=== PATIENT | male | born 1950 | race Caucasian/White ===

== ENCOUNTER 2018-07-04 20:25 | Emergency (ER) | payer MEDICARE, MEDICAID, SELFPAY ==
[2018-07-04 20:25] VITALS: BP 168/120; PULSE 96; RESP 18; TEMP 36.7; O2SAT 98
--- NOTE | 2018-07-04 20:32 | DI.RAD.S_ITS ---
PROCEDURE: XR CHEST 1V INDICATIONS: SOB TECHNIQUE: One view of the chest was acquired. COMPARISON: None. FINDINGS: Surgical changes and devices: None. Lungs and pleura: No pleural effusions or pneumothorax. Lungs are clear. Mediastinum: Mediastinal contours appear normal. Heart size is normal. Bones and chest wall: No suspicious bony lesions. Overlying soft tissues appear unremarkable. IMPRESSION: No acute cardiopulmonary pathology. Dictated by: Titus Dc M.D. on 07/04/2018 at 21:00 Approved by: Titus Dc M.D. on 07/04/2018 at 21:00
[2018-07-04] MEDS: ASPIRIN 81 MG TAB 324 MG PO (20:36)
[2018-07-04 20:39] VITALS: BP 155/89; PULSE 98; RESP 18; O2SAT 98
[2018-07-04 20:48] LABS: Add Manual Diff / Slide Review NO; Basophils Percent Auto 0.8 % (0-2); Eosinophils Percent Auto 4.3 % (2-4); Hematocrit 47.3 % (41-53); Hemoglobin 16.4 g/dL (13.5-17.5); Lymphocytes Percent Auto 36.2 % (25-40); Mean Corpuscular HGB Conc 34.7 % (30-36); Mean Corpuscular Hemoglobin 33.1 PG (26-34); Mean Corpuscular Volume 95.2 fL (80-100); Monocytes Percent Auto 10.4 % (3-14); Neutrophils Absolute Auto 3100 /uL (3000-5900); Neutrophils Percent Auto 48.3 % (50-75); Platelet Count 189 X10^3/uL (150-400); Red Blood Cell Count 4.96 X10^6/uL (4.5-5.9); White Blood Cell Count 6.5 X10^3/uL (4.5-11.0)
[2018-07-04 20:59] LABS: Alanine Aminotransferase 45 IU/L (21-72); Albumin 4.6 g/dL (3.5-5.0); Albumin Globulin Ratio 1.6 (1.0-2.8); Alkaline Phosphatase 65 U/L (38-126); Aspartate Aminotransferase 36 IU/L (17-59); BUN Creatinine Ratio 15.4 (6-22); Bilirubin Total 0.8 mg/dL (0.2-1.3); Blood Urea Nitrogen 20 mg/dL (9-20); Calcium 9.6 mg/dL (8.4-10.2); Carbon Dioxide 27 mmol/L (22-32); Chloride 107 mmol/L (98-107); Creatine Kinase 204 U/L (55-170); Estimated Glomerular Filt Rate 55.1 mL/min (>60); Globulin 2.8 g/dL (1.7-4.1); Glucose 101 mg/dL (80-110); Lipase 324 U/L (23-300); Potassium 3.8 mmol/L (3.4-5.1); Sodium 146 mmol/L (137-145); Total Protein 7.4 g/dL (6.3-8.2)
[2018-07-04] MEDS: SODIUM CHLORIDE 0.9% 1,000 ML 150 ML IV (21:00)
--- NOTE | 2018-07-04 21:06 | ED.CHESTPAIN ---
HPI - Chest Pain General Chief Complaint: Chest Pain Stated Complaint: CHEST PAINS Time Seen by Provider: 07/04/18 20:32 Source: patient and family Mode of arrival: ambulatory Limitations: no limitations History of Present Illness HPI narrative: 68-year-old male with history of cardiac arrest secondary to septic shock presents to the emergency department today secondary to feeling a bit off over the course of the day including some fatigue and lack of energy as well as 3 episodes of brief sharp and stabbing anterior chest pain. He has not had any pain during his visit and denies any shortness of breath. He denies any recent illness such as runny nose, sore throat or cough. He has had no fever or chills. He admits to being under significant stress recently and has not been sleeping well admits that he probably has not been eating or drinking appropriately I the MD complaint: chest pain Onset (ago): hour(s) Duration: intermittent and now resolved Onset: during rest Pain location: substernal Severity: mild Quality: sharp Pain radiation: none Relieving factors: nothing Exacerbating factors: nothing Treatments prior to arrival chest pain: none Related Data Home Medications Medication Instructions Recorded Confirmed amlodipine 5 mg PO BEDTIME 07/04/18 07/04/18 Previous Rx's Medication Instructions Recorded chlorpromazine 25 mg tablet 25 mg PO BEDTIME #30 tab 07/02/18 metoprolol succinate ER 50 mg 150 mg PO DAILY #30 tab 07/02/18 tablet,extended release 24 hr pramipexole 0.125 mg tablet 0.125 mg PO BEDTIME #30 tab 07/02/18 Allergies Allergy/AdvReac Type Severity Reaction Status Date / Time No Known Drug Allergies Allergy Unverified 07/02/18 13:13 Review of Systems Review of Systems All systems reviewed & are unremarkable except as noted in HPI and below Constitutional Denies chills, Reports fatigue, Denies fever(s), Denies lethargy and Reports weakness Eyes Denies change in vision, Denies eye discharge, Denies irritation and Denies loss of vision ENT Ears, Nose, Mouth, and Throat: Denies change in voice, Denies neck pain and Denies sore throat Cardiovascular Reports chest pain, Denies irregular heart rhythm, Denies lightheadedness, Denies palpitations, Denies dyspnea, Denies dyspnea on exertion and Denies orthopnea Respiratory Denies cough, Denies dyspnea, Denies dyspnea on exertion and Denies wheezing Gastrointestinal Gastrointestinal: Denies abdominal pain, Denies change in bowel habits, Denies diarrhea, Denies nausea and Denies vomiting Genitourinary Denies hematuria, Denies flank pain, Denies urinary incontinence and Denies urinary urgency Musculoskeletal Denies neck pain Integumentary/Breasts Denies pruritus, Denies erythema, Denies rash and Denies wounds Neurologic Denies confusion, Denies loss of vision and Reports weakness Psychiatric Denies anxiety, Denies confusion, Denies depression, Denies homicidal ideation and Denies suicidal ideation Endocrine Reports fatigue and Denies palpitations Hematologic/Lymphatic Denies easy bruising Allergic/Immunologic Denies wheezing [facility] Medical History Atrial fibrillation (Chronic 2017) Bipolar disorder (Chronic 1989) Dementia (Chronic 2017) Depression (Chronic 1989) Hypertension (Chronic) Kidney disease (Chronic 11/2017) Kidney failure (Chronic 11/2017) Low testosterone (Chronic 1989) Pituitary adenoma (Chronic 1989) Thyroid nodule (Chronic 1989) Cardiac arrest (Resolved 11/2017) Measles (Resolved) Melanoma (Resolved ~2009) Mumps (Resolved) Pneumonia (Resolved 10/2012) Family History Father Cancer Hypertension Mother Diabetes mellitus Grandfather Cancer Grandmother Cancer Grandfather Heart disease Grandmother Heart disease Social History Smoking Status: Never smoker alcohol intake: never Exam Narrative Exam Narrative: Pleasant 68-year-old male appears a bit fatigued but in no obvious or significant distress Initial Vital Signs Initial Vital Signs: Vital Signs Temperature 98.1 F 07/04/18 20:25 Pulse Rate 96 H 07/04/18 20:25 Respiratory Rate 18 07/04/18 20:25 Blood Pressure 168/120 H 07/04/18 20:25 Pulse Oximetry 98 07/04/18 20:25 Const General: cooperative and well developed Nutritional Appearance: well nourished Orientation: alert, awake, oriented x3 and not confused HENMT Head: normocephalic and atraumatic Ears: external ears normal and TM's normal bilaterally Nose: external nose normal and No nasal discharge Face and sinus: sinuses nontender, face symmetric, no sinus tenderness and No dry mucous membranes Mouth: oral mucosae normal and moist mucous membranes Teeth and gingiva: dentition normal Throat: tonsils normal and uvula midline Eyes General: appearance normal, both eyes and all related structures Eyelids: eyelids normal Conjunctivae: conjunctivae normal Sclera: sclerae normal Pupils: PERRL EOM: EOM intact bilaterally Chest Chest: normal inspection of the chest Resp Effort & Inspection: normal respiratory effort, able to speak in complete sentences, no respiratory distress and no use of accessory muscles Auscultation: clear to auscultation bilaterally, no rales, no rhonchi and no wheezes Cardio Rate: regular rate Rhythm: abnormal rhythm GI Inspection: non-distended Palpation: soft, no hepatosplenomegaly, No guarding, No pulsatile mass and No tender Auscultation: normal bowel sounds Back/Spine/Pelvis Back: No CVA tenderness Cervical Spine: cervical ROM normal and No pain with cervical ROM Thoracic/Lumbar Spine: thoracic and lumbar spine normal to inspection Skin General: no rashes or lesions noted, No jaundice and No petechiae Neuro General: alert, oriented x3, gait normal and no focal motor deficits Speech: speech normal Psych Appearance: well kempt Mental Status: mental status grossly normal Attitude: cooperative Thought Content: normal and suicidality Judgment: judgment good Course Orders Ordered: ED Orders 07/04/18 20:32 XR chest 1V Stat EKG-12 Lead Stat 07/04/18 20:35 Complete Blood Count AUTO DIFF Stat Comprehensive Metabolic Panel Stat Lipase Stat Troponin & CK Cardiac Panel Stat Discontinued Medications Aspirin (Aspirin Chew) 324 mg PO NOW ONE Stop: 07/04/18 20:33 Last Admin: 07/04/18 20:36 Dose: 324 mg Sodium Chloride (Normal Saline 0.9%) 1,000 mls @ 150 mls/hr IV CONT JAVI Last Infusion: 07/04/18 23:14 Dose: 0 mls/hr Admin: 07/04/18 21:00 Dose: 150 mls/hr Vital Signs - 8 hr 07/04/18 20:25 07/04/18 20:39 07/04/18 21:59 Temperature 98.1 F Pulse Rate 96 H 98 H 84 Respiratory Rate 18 18 12 Blood Pressure 168/120 H Blood Pressure [Right Arm] 155/89 H 129/102 H Pulse Oximetry 98 98 95 07/04/18 22:37 Temperature Pulse Rate 93 H Respiratory Rate 16 Blood Pressure Blood Pressure [Right Arm] 132/97 H Pulse Oximetry 96 MDM - Chest Pain Differential Diagnosis Likely fracture of rib, pneumothorax, stable angina, unstable angina pectoris, atypical chest pain, st elevation myocardial infarction and costochondritis Medical Records Data Attestation: I reviewed the patient's medical records. Patient has a significant recent medical history including prolonged hospitalization for AFib w/RVR, anxiety, cardiac arrest, prolonged hospitalization and pneumonia with eventual discharge Lab Data Result diagrams: 07/04/18 20:35 07/04/18 20:35 Lab Results 07/04/18 07/04/18 Range/Units 20:35 20:35 WBC 6.5 (4.5-11.0) X10^3/uL RBC 4.96 (4.5-5.9) X10^6/uL Hgb 16.4 (13.5-17.5) g/dL Hct 47.3 (41-53) % MCV 95.2 (80-100) fL MCH 33.1 (26-34) PG MCHC 34.7 (30-36) % RDW 14.0 (11.6-14.8) % Plt Count 189 (150-400) X10^3/uL Neut % (Auto) 48.3 L (50-75) % Lymph % (Auto) 36.2 (25-40) % Barnes % (Auto) 10.4 (3-14) % Eos % (Auto) 4.3 H (2-4) % Baso % (Auto) 0.8 (0-2) % Neut # (Auto) 3100 (1062-9913) /uL Sodium 146 H (137-145) mmol/L Potassium 3.8 (3.4-5.1) mmol/L Chloride 107 (98-107) mmol/L Carbon Dioxide 27 (22-32) mmol/L BUN 20 (9-20) mg/dL Creatinine 1.30 H (0.66-1.25) mg/dL Estimated GFR 55.1 L (>60) mL/min BUN/Creatinine Ratio 15.4 (6-22) Glucose 101 (80-110) mg/dL Calcium 9.6 (8.4-10.2) mg/dL Total Bilirubin 0.8 (0.2-1.3) mg/dL AST 36 (17-59) IU/L ALT 45 (21-72) IU/L Alkaline Phosphatase 65 (38-126) U/L Total Creatine Kinase 204 H (55-170) U/L CK-MB (CK-2) 6.33 H (<2.37) ng/mL CK-MB (CK-2) Rel Index 3.1 (1.5-5.0) % Troponin I < 0.012 (0.01-0.034) ng/mL Total Protein 7.4 (6.3-8.2) g/dL Albumin 4.6 (3.5-5.0) g/dL Globulin 2.8 (1.7-4.1) g/dL Albumin/Globulin Ratio 1.6 (1.0-2.8) Lipase 324 H (23-300) U/L Discharge Plan Departure Patient Disposition: Home Clinical Impression: Atypical chest pain, Fatigue Discharge Date/Time: 07/04/18 23:15 Interventions: ED Discharge Assessment Last Done: 07/04/18 23:11 Instructions: DI for Atypical Chest Pain Activity Restrictions/Additional Instructions: *You have been diagnosed with [ atypical chest pain and fatigue ] *What to do: * continue to take medications as directed *Follow up with your primary care provider in 2-3 days, call tomorrow morning for an appointment. Let them know you were seen in the Emergency Department and that we ask that you be seen in follow up *Return to ER if you should have any new, worsening or concerning symptoms Prescriptions: No Action chlorpromazine 25 mg tablet 25 mg PO BEDTIME Qty: 30 RF: 0 metoprolol succinate 50 mg tablet extended release 24 hr 150 mg PO DAILY Qty: 30 RF: 0 pramipexole 0.125 mg tablet 0.125 mg PO BEDTIME Qty: 30 RF: 0 amlodipine 5 mg tablet 5 mg PO BEDTIME RF: 0 Referrals: Rik Licona MD [Primary Care Provider] -
[2018-07-04 21:14] LABS: CKMB % Relative Index 3.1 % (1.5-5.0); Creatine Kinase MB 6.33 ng/mL (<2.37)
[2018-07-04 21:16] LABS: Troponin I < 0.012 ng/mL (0.01-0.034)
[2018-07-04 21:59] VITALS: BP 129/102; PULSE 84; RESP 12; O2SAT 95
[2018-07-04 22:37] VITALS: BP 132/97; PULSE 93; RESP 16; O2SAT 96
== END 2018-07-04 23:15 | disposition home or self-care (01) ==
PROVIDERS: Emergency Provider Emergency Medicine; PCP Family Medicine
DX: R07.89 Other chest pain (principal); R53.81 Other malaise
CPT/HCPCS: 36591; 71045; 80053; 81003; 82550; 82553; 83690; 84484; 85025; 93005; 93010; 96360; 96361; 99283; 99285

== ENCOUNTER → 2018-12-09 17:23 | Outpatient (CLI) | payer MEDICARE, MEDICAID, SELFPAY ==
--- NOTE | 2018-12-09 17:27 | DI.RAD.S_ITS ---
PROCEDURE: XR CHEST 2V INDICATIONS: cough TECHNIQUE: 2 views of the chest were acquired. COMPARISON: None. FINDINGS: Surgical changes and devices: None. Lungs and pleura: Lungs are clear. No pleural effusions or pneumothorax. Mediastinum: Mediastinal contours are normal. Heart size is normal. Bones and chest wall: No suspicious bony abnormalities. Soft tissues appear unremarkable. IMPRESSION: No acute cardiopulmonary findings. Dictated by: Alyssa Mccloud M.D. on 12/09/2018 at 17:39 Approved by: Alyssa Mccloud M.D. on 12/09/2018 at 17:40
== END ==
PROVIDERS: PCP Family Medicine; Visit Provider Physician Assistant
DX: R05 Cough (principal)
CPT/HCPCS: 71046

== ENCOUNTER 2018-12-09 17:45 | Inpatient (IN) | payer MEDICARE, SELFPAY ==
[2018-12-09] VITALS (8 sets, daily range): BP systolic 112–148; BP diastolic 71–105; PULSE 66–144; RESP 16–31; TEMP 36.6–37.2; O2SAT 96–99; BMI 34.2
--- NOTE | 2018-12-09 | DI.ECHO.S_ITS ---
[facility] +---------+ : : [address] [place] : : : : [id number] : : : : Phone: [phone]+ Echocardiogram Report + + :Name: SUSHIL MELÉNDEZ Study Date: 12/10/2018 Height: 73 in : :[facility] Weight: 260 lb : : Gender: Male BSA: 2.4 m2 : :: 1950 Age: 68 yrs BP: 145/76 mmHg: :Reason For Study: Atrial fibrillation : : Performed By: Geetha Olvera : :Referring: SILKE ARTEAGA : + + Interpretation Summary Left ventricular systolic function is low normal with the ejection fraction grossly estimated to be 50-60% with considerable [id number] variability due to atrial fibrillation. There is a suggestion of hypokinesis of the proximal and mid posterior wall although endocardium is not well seen and thus this finding lacks specificity. Otherwise, there are no focal wall motion abnormalities seen. Left ventricular size is at the upper limits of normal and there is borderline concentric left ventricular hypertrophy. The right ventricle is mild to moderately dilated and right ventricular systolic function is mild to moderately reduced. The right ventricular systolic pressure is estimated to be at least 30 mmHg based on an estimated right atrial pressure of 3 mm Hg. The left atrium is moderately dilated. There is mild mitral regurgitation and mild to moderate tricuspid regurgitation but no other significant valvular heart disease. The ascending aorta is at the upper limits of normal in size and the aortic arch is mildly enlarged. The patient was in atrial fibrillation with heart rates between 66-83 bpm during the exam. Procedure: A two-dimensional transthoracic echocardiogram with color flow and Doppler was performed. The study quality was technically adequate. There is no prior echocardiogram noted for this patient. The patient was in atrial fibrillation with heart rates between 66-83 bpm during the exam. Left Ventricle: Left ventricular size is at the upper limits of normal. There is borderline concentric left ventricular hypertrophy. Left ventricular systolic function is low normal. Left ventricular ejection fraction is estimated to be 50-60% with considerable [id number] variability due to atrial fibrillation. There is a suggestion of hypokinesis of the proximal and mid posterior wall although endocardium is not well seen and thus this finding lacks specificity. Otherwise, there are no focal wall motion abnormalities seen. Diastolic function could not be accurately assessed due to atrial fibrillation. Right Ventricle: The right ventricle is mild to moderately dilated. Right ventricular systolic function is mild to moderately reduced. Atria: The left atrium is moderately dilated. Right atrial size is normal. The interatrial septum is intact with no evidence for an atrial septal defect. Mitral Valve: The mitral valve is grossly normal. There is mild mitral regurgitation. Aortic Valve: The aortic valve is trileaflet. The aortic valve opens well. There is no aortic valve stenosis. No aortic regurgitation is present. Tricuspid Valve: The tricuspid valve leaflets are thin and pliable. There is mild to moderate tricuspid regurgitation. The right ventricular systolic pressure is estimated to be at least 30 mmHg based on an estimated right atrial pressure of 3 mm Hg. Pulmonic Valve: The pulmonic valve is not well seen, but is grossly normal. There is trace pulmonic regurgitation. There is no other significant valvular heart disease. Great Vessels: The aortic root is normal size. The ascending aorta is at the upper limits of normal in size. The aortic arch is mildly enlarged. The IVC is of normal diameter and collapses greater than 50% with a sniff. This suggests a low right atrial pressure of 3 mm Hg. Pericardium/ Pleura There is no pericardial effusion. There is no pleural effusion. MMode/2D Measurements & Calculations LVIDd: 5.5 cm Ao root diam: 3.8 cm LVIDs: 4.0 cm Aortic Jxn: 3.1 cm FS: 27.9 % asc Aorta Diam: 3.4 cm EPSS: 0.75 cm Ao Arch Diam (Prox Trans): 3.2 cm IVSd: 1.1 cm LVPWd: 0.73 cm LV pena. diameter/BSA (cm/m^2): 2.3 LV sys. diameter/BSA (cm/m^2): 1.7 LA dimension: 4.7 cm RA long axis: 5.4 cm LA A2 area: 30.6 cm2 RA area: 15.6 cm2 LA A4 area: 28.7 cm2 RA vol: 38.2 ml LA length (vol): 6.8 cm RA : 15.9 ml/m2 LA vol: 109.3 ml IVC diam: 1.6 cm LA vol index: 45.4 ml/m2 RVD1 (basal): 4.6 cm RVD2 (mid): 3.9 cm Doppler Measurements & Calculations Ao V2 max: 109.7 cm/sec MV E max tavo: 84.9 cm/sec Ao V2 mean: 77.5 cm/sec MV A max tavo: 34.8 cm/sec Ao max P.8 mmHg MV E/A: 2.4 Ao mean P.7 mmHg Med Peak E' Tavo: 7.5 cm/sec Ao V2 VTI: 24.5 cm E/E' med: 11.4 Lat Peak E' Tavo: 10.1 cm/sec E/E' lat: 8.4 E/e' average: 9.9 MV dec time: 0.16 sec MV P1/2t: 49.1 msec TR max tavo: 258.0 cm/sec MV P1/2t max tavo: 85.2 cm/sec TR max P.6 mmHg MVA(P1/2t): 4.5 cm2 PA V2 max: 55.7 cm/sec PA V2 mean: 33.7 cm/sec PA mean P.56 mmHg PA Accel Time: 0.09 sec Reading Physician:PM
[2018-12-09 18:49] LABS: Add Manual Diff / Slide Review NO; Basophils Absolute Auto 0 /uL (0-100); Basophils Percent Auto 0.5 % (0-2); Eosinophils Absolute Auto 200 /uL (0-450); Eosinophils Percent Auto 2.5 % (2-4); Hematocrit 47.8 % (41-53); Hemoglobin 16.4 g/dL (13.5-17.5); Lymphocytes Absolute Auto 1800 /uL (1100-4500); Lymphocytes Percent Auto 17.9 % (25-40); Mean Corpuscular HGB Conc 34.3 % (30-36); Mean Corpuscular Hemoglobin 32.3 PG (26-34); Mean Corpuscular Volume 94.2 fL (80-100); Monocytes Absolute Auto 900 /uL (0-900); Neutrophils Absolute Auto 6900 /uL (1500-7000); Neutrophils Percent Auto 70.1 % (50-75); Platelet Count 173 X10^3/uL (150-400); Red Blood Cell Count 5.07 X10^6/uL (4.5-5.9); Red Cell Distribution Width 14.8 % (11.6-14.8); White Blood Cell Count 9.8 X10^3/uL (4.5-11.0)
[2018-12-09] MEDS: dilTIAZem 5 MG/ML SDV 10 MG IV (18:54)
[2018-12-09] MEDS: SODIUM CHLORIDE 0.9% 1,000 ML 150 ML IV (18:55)
[2018-12-09 19:01] LABS: Influenza A and B by PCR Rapid Negative (Negative)
[2018-12-09 19:05] LABS: BUN Creatinine Ratio 15.7 (6-22); Blood Urea Nitrogen 22 mg/dL (9-20); Calcium 9.5 mg/dL (8.4-10.2); Carbon Dioxide 22 mmol/L (22-32); Chloride 107 mmol/L (98-107); Creatine Kinase 246 U/L (55-170); Estimated Glomerular Filt Rate 50.5 mL/min (>60); Glucose 88 mg/dL (80-110); HEMOLYSIS 29 (0-50); Potassium 3.7 mmol/L (3.4-5.1); Sodium 141 mmol/L (137-145)
[2018-12-09 19:18] LABS: Lactate (Lactic Acid) 1.2 mmol/L (0.7-2.1); Troponin I < 0.012 ng/mL (0.01-0.034)
[2018-12-09 19:19] LABS: CKMB % Relative Index 2.3 % (1.5-5.0)
[2018-12-09 19:21] LABS: Procalcitonin < 0.05 ng/mL (<0.5)
--- NOTE | 2018-12-09 19:21 | ED.ARRPALP ---
HPI - Arrhythmia/Palpitations General Chief Complaint: Arrhythmia/Palpitations Stated Complaint: COUGH, ABNORMAL EKG Time Seen by Provider: 12/09/18 18:13 Source: patient Mode of arrival: ambulatory Limitations: no limitations History of Present Illness HPI narrative: 68-year-old male former smoker with history of coronary artery disease, AFib and the memory issues presents at the request of the walk-in clinic. He presented to the walk-in clinic after having a few days of cough and shortness of breath which made him think he had pneumonia. The last time he had pneumonia he became quite ill and in the and had a cardiac arrest related to sepsis which resulted in an anoxic encephalopathy and contributed to his ongoing memory problems. He has a history of atrial fibrillation but does not know if he has been taking his anticoagulation and states he thinks he may have been out for some time. He denies any chest pain or even shortness of breath but is convinced he has pneumonia. He denies any fever or chills. He has had no runny nose, sore throat but has had occasional cough. Severity: moderate Arrhythmia history: atrial fibrillation and on anti-coagulants Associated symptoms: shortness of breath Related Data Previous Rx's Medication Instructions Recorded chlorpromazine 25 mg tablet 25 mg PO BEDTIME #90 tab 10/26/18 metoprolol succinate ER 50 mg 150 mg PO DAILY #90 tab 10/26/18 tablet,extended release 24 hr pramipexole 0.125 mg tablet 0.125 mg PO BEDTIME #90 tab 12/06/18 Allergies Allergy/AdvReac Type Severity Reaction Status Date / Time No Known Drug Allergies Allergy Verified 12/09/18 17:55 Review of Systems Constitutional Denies chills, Denies fever(s), Denies lethargy and Denies weakness Eyes Denies change in vision, Denies eye discharge, Denies irritation and Denies loss of vision ENT Ears, Nose, Mouth, and Throat: Denies change in voice, Denies neck pain and Denies sore throat Cardiovascular Denies chest pain, Denies irregular heart rhythm, Denies lightheadedness, Denies palpitations, Reports dyspnea, Reports dyspnea on exertion and Denies orthopnea Respiratory Reports cough, Reports dyspnea, Reports dyspnea on exertion and Denies wheezing Gastrointestinal Gastrointestinal: Denies abdominal pain, Denies change in bowel habits, Denies diarrhea, Denies nausea and Denies vomiting Genitourinary Denies hematuria, Denies flank pain, Denies urinary incontinence and Denies urinary urgency Musculoskeletal Denies neck pain Integumentary/Breasts Denies pruritus, Denies erythema, Denies rash and Denies wounds Neurologic Denies confusion, Denies loss of vision and Denies weakness Psychiatric Denies anxiety, Denies confusion, Denies depression, Denies homicidal ideation and Denies suicidal ideation Endocrine Denies palpitations Hematologic/Lymphatic Denies easy bruising Allergic/Immunologic Denies wheezing [facility] Medical History Essential hypertension (Chronic) Anoxic brain injury (Chronic) Memory loss (Chronic) Bipolar disorder (Chronic) Atrial fibrillation (Chronic 2017) Bipolar disorder (Chronic 1989) Dementia (Chronic 2017) Depression (Chronic 1989) Hypertension (Chronic) Kidney disease (Chronic 11/2017) Kidney failure (Chronic 11/2017) Low testosterone (Chronic 1989) Pituitary adenoma (Chronic 1989) Thyroid nodule (Chronic 1989) Cardiac arrest (Resolved 11/2017) Measles (Resolved) Melanoma (Resolved ) Mumps (Resolved) Pneumonia (Resolved 10/2012) Family History Father Cancer Hypertension Mother Diabetes mellitus Grandfather Cancer Grandmother Cancer Grandfather Heart disease Grandmother Heart disease Social History household members: spouse Smoking Status: Never smoker alcohol intake: never Family History Father Cancer Hypertension Mother Diabetes mellitus Grandfather Cancer Grandmother Cancer Grandfather Heart disease Grandmother Heart disease Social History household members: spouse Smoking Status: Never smoker alcohol intake: never Exam Narrative Exam Narrative: GENERAL: 68-year-old male is pleasantly confused and no obvious distress but does complain of feeling a bit anxious HEAD: Atraumatic. Normocephalic. No temporal or scalp tenderness. EYES: Pupils equal round and reactive. Extraocular motions intact. No scleral icterus. No injection or drainage. ENT: Nose without bleeding, purulent drainage or septal hematoma. Throat without erythema, tonsillar hypertrophy or exudate. Uvula midline. Airway patent. NECK: Trachea midline. No JVD or lymphadenopathy. Supple, nontender, no meningeal signs. CARDIOVASCULAR: tachycardic and irregular without murmurs, gallops, or rubs. RESPIRATORY: Clear to auscultation. Breath sounds equal bilaterally. No wheezes, rales, or rhonchi. GASTROINTESTINAL: Abdomen soft, non-tender, nondistended. No hepato-splenomegaly, or palpable masses. No guarding. EXTREMITIES: No clubbing, cyanosis, or edema. No joint tenderness, effusion, or edema noted. BACK: Nontender without deformity or crepitance. No flank tenderness. NEURO: AOx3. SKIN: No rash or erythema. Initial Vital Signs Initial Vital Signs: Vital Signs Temperature 98.7 F 12/09/18 17:45 Pulse Rate 92 H 12/09/18 17:45 Respiratory Rate 20 12/09/18 17:45 Blood Pressure 143/75 H 12/09/18 17:45 Pulse Oximetry 99 12/09/18 17:45 Course Orders Ordered: ED Orders 12/09/18 19:19 Blood Culture Stat 12/09/18 21:15 MRSA PCR Urgent 12/09/18 22:54 Partial Thromboplastin Time Stat Procalcitonin Stat Prothrombin Time INR Stat Troponin I Stat 12/10/18 EKG-12 Lead Routine 12/10/18 05:00 Troponin I Stat Acetaminophen (Tylenol) 650 mg PO Q6HR PRN PRN Reason: As Needed for Fever/Mild Pain Benzonatate (Tessalon Perles) 200 mg PO TID PRN PRN Reason: Cough Last Admin: 12/10/18 01:35 Dose: 200 mg Chlorpromazine HCl (Thorazine) 25 mg PO BEDTIME [facility] Last Admin: 12/09/18 22:49 Dose: Enoxaparin Sodium (Lovenox) 90 mg 0.75 mg/kg (90 mg) SUBCUT BID [facility] Last Admin: 12/09/18 23:48 Dose: 90 mg Sodium Chloride (Normal Saline 0.9%) 1,000 mls @ 150 mls/hr IV CONT [facility] Last Admin: 12/10/18 00:31 Dose: 150 mls/hr Infusion: 12/10/18 00:30 Dose: 0 mls/hr Infusion: 12/09/18 21:20 Dose: 150 mls/hr Admin: 12/09/18 18:55 Dose: 150 mls/hr Diltiazem HCl 125 mg/ Dextrose 125 mls @ 5 mls/hr IV TITRATE JAVI; Protocol Last Titration: 12/10/18 03:09 Dose: 5 mg/hr, 5 mls/hr Titration: 12/09/18 21:20 Dose: 15 mg/hr, 15 mls/hr Titration: 12/09/18 20:17 Dose: 15 mg/hr, 15 mls/hr Titration: 12/09/18 19:40 Dose: 10 mg/hr, 10 mls/hr Admin: 12/09/18 19:22 Dose: 5 mg/hr, 5 mls/hr Influenza Virus Vaccine (Flu Vaccine) 0.5 ml IM .ONCE ONE Stop: 12/10/18 09:01 Metoprolol Succinate (Toprol Xl) 150 mg PO DAILY JAVI Morphine Sulfate (Morphine) 2 mg IV Q4HR PRN PRN Reason: Pain, Moderate (4-6) Morphine Sulfate (Morphine) 4 mg IV Q4HR PRN PRN Reason: Pain, Severe (7-10) Pantoprazole Sodium (Protonix) 40 mg PO 0700 JAVI Pramipexole Dihydrochloride (Mirapex) 0.125 mg PO BEDTIME [facility]AVI Last Admin: 12/09/18 22:48 Dose: 0.125 mg Discontinued Medications Aspirin (Aspirin) 325 mg PO NOW ONE Stop: 12/09/18 21:33 Last Admin: 12/09/18 22:49 Dose: 325 mg Diltiazem HCl (Cardizem) 10 mg IV NOW ONE Stop: 12/09/18 18:38 Last Admin: 12/09/18 18:54 Dose: 10 mg Dextrose/Sodium Chloride (Dextrose 5%-0.9% Ns) 1,000 mls @ 125 mls/hr IV CONT JAVI Lorazepam (Ativan) 0.5 mg PO BEDTIME PRN PRN Reason: Sleep Lorazepam (Ativan) 0.5 mg PO BEDTIME ONE Stop: 12/10/18 01:12 Last Admin: 12/10/18 01:27 Dose: 0.5 mg Metoprolol Tartrate (Lopressor) 12.5 mg PO NOW ONE Stop: 12/09/18 20:41 Last Admin: 12/09/18 21:00 Dose: 12.5 mg Reevaluation(s) Reevaluation #1: At no point this patient have chest pain, profound shortness of breath or ischemic EKG changes. It is unclear when his symptoms started and very likely that his anticoagulation is not being taken as directed making him of large wrist to cardiovert. For that reason he is administered Cardizem as an IV push which results in a transient lower in his heart rate at which point a Cardizem drip was ordered. After discussion with hospitalist metoprolol had been ordered as well Vital Signs - 8 hr 12/09/18 21:00 12/09/18 21:21 12/09/18 22:00 Temperature 98.9 F 98.8 F Pulse Rate 103 H 115 H 66 Respiratory Rate 16 16 17 Blood Pressure 127/81 121/91 H 121/71 Pulse Oximetry 99 96 12/09/18 23:35 12/10/18 00:06 12/10/18 01:04 Temperature 97.8 F 97.8 F Pulse Rate 71 66 79 Respiratory Rate 31 H 17 13 Blood Pressure 112/85 142/89 H 132/80 Pulse Oximetry 99 97 97 12/10/18 02:14 12/10/18 03:00 12/10/18 04:04 Temperature 97.8 F Pulse Rate 75 77 68 Respiratory Rate 17 16 10 L Blood Pressure 135/79 99/61 117/91 H Pulse Oximetry 96 96 97 MDM - Arrhythmia/Palpitations Lab Data Result diagrams: 12/09/18 18:40 12/09/18 18:40 Lab Results 12/09/18 12/09/18 12/09/18 Range/Units 18:40 18:40 18:40 WBC 9.8 (4.5-11.0) X10^3/uL RBC 5.07 (4.5-5.9) X10^6/uL Hgb 16.4 (13.5-17.5) g/dL Hct 47.8 (41-53) % MCV 94.2 (80-100) fL MCH 32.3 (26-34) PG MCHC 34.3 (30-36) % RDW 14.8 (11.6-14.8) % Plt Count 173 (150-400) X10^3/uL Neut % (Auto) 70.1 (50-75) % Lymph % (Auto) 17.9 L (25-40) % [place] % (Auto) 9.0 (3-14) % Eos % (Auto) 2.5 (2-4) % Baso % (Auto) 0.5 (0-2) % Neut # (Auto) 6900 (8121-0313) /uL Lymph # (Auto) 1800 (5798-8620) /uL [place] # (Auto) 900 (0-900) /uL Eos # (Auto) 200 (0-450) /uL Baso # (Auto) 0 (0-100) /uL PT (10.1-12.7) SECONDS INR (0.9-1.3) APTT (26.4-36.2) SECONDS Sodium 141 (137-145) mmol/L Potassium 3.7 (3.4-5.1) mmol/L Chloride 107 (98-107) mmol/L Carbon Dioxide 22 (22-32) mmol/L BUN 22 H (9-20) mg/dL Creatinine 1.40 H (0.66-1.25) mg/dL Estimated GFR 50.5 L (>60) mL/min BUN/Creatinine Ratio 15.7 (6-22) Glucose 88 (80-110) mg/dL Lactate (0.7-2.1) mmol/L Calcium 9.5 (8.4-10.2) mg/dL Magnesium 2.0 (1.6-2.3) mg/dL Total Creatine Kinase 246 H (55-170) U/L CK-MB (CK-2) 5.70 H (<2.37) ng/mL CK-MB (CK-2) Rel Index 2.3 (1.5-5.0) % Troponin I < 0.012 (0.01-0.034) ng/mL Procalcitonin < 0.05 (<0.5) ng/mL TSH (0.47-4.68) uIU/mL Nasal Screen MRSA (PCR) (Negative) Influenza A & B (PCR) (Negative) 12/09/18 12/09/18 12/09/18 Range/Units 18:40 18:40 18:40 WBC (4.5-11.0) X10^3/uL RBC (4.5-5.9) X10^6/uL Hgb (13.5-17.5) g/dL Hct (41-53) % MCV (80-100) fL MCH (26-34) PG MCHC (30-36) % RDW (11.6-14.8) % Plt Count (150-400) X10^3/uL Neut % (Auto) (50-75) % Lymph % (Auto) (25-40) % [place] % (Auto) (3-14) % Eos % (Auto) (2-4) % Baso % (Auto) (0-2) % Neut # (Auto) (6758-6494) /uL Lymph # (Auto) (6736-0581) /uL [place] # (Auto) (0-900) /uL Eos # (Auto) (0-450) /uL Baso # (Auto) (0-100) /uL PT (10.1-12.7) SECONDS INR (0.9-1.3) APTT (26.4-36.2) SECONDS Sodium (137-145) mmol/L Potassium (3.4-5.1) mmol/L Chloride (98-107) mmol/L Carbon Dioxide (22-32) mmol/L BUN (9-20) mg/dL Creatinine (0.66-1.25) mg/dL Estimated GFR (>60) mL/min BUN/Creatinine Ratio (6-22) Glucose (80-110) mg/dL Lactate (0.7-2.1) mmol/L Calcium (8.4-10.2) mg/dL Magnesium (1.6-2.3) mg/dL Total Creatine Kinase (55-170) U/L CK-MB (CK-2) (<2.37) ng/mL CK-MB (CK-2) Rel Index (1.5-5.0) % Troponin I (0.01-0.034) ng/mL Procalcitonin Cancelled (<0.5) ng/mL TSH 3.06 (0.47-4.68) uIU/mL Nasal Screen MRSA (PCR) (Negative) Influenza A & B (PCR) Negative (Negative) 12/09/18 12/09/18 12/09/18 Range/Units 18:40 21:15 22:54 WBC (4.5-11.0) X10^3/uL RBC (4.5-5.9) X10^6/uL Hgb (13.5-17.5) g/dL Hct (41-53) % MCV (80-100) fL MCH (26-34) PG MCHC (30-36) % RDW (11.6-14.8) % Plt Count (150-400) X10^3/uL Neut % (Auto) (50-75) % Lymph % (Auto) (25-40) % [place] % (Auto) (3-14) % Eos % (Auto) (2-4) % Baso % (Auto) (0-2) % Neut # (Auto) (4728-0017) /uL Lymph # (Auto) (1263-8141) /uL [place] # (Auto) (0-900) /uL Eos # (Auto) (0-450) /uL Baso # (Auto) (0-100) /uL PT 16.9 H (10.1-12.7) SECONDS INR 1.5 H (0.9-1.3) APTT 37 H (26.4-36.2) SECONDS Sodium (137-145) mmol/L Potassium (3.4-5.1) mmol/L Chloride (98-107) mmol/L Carbon Dioxide (22-32) mmol/L BUN (9-20) mg/dL Creatinine (0.66-1.25) mg/dL Estimated GFR (>60) mL/min BUN/Creatinine Ratio (6-22) Glucose (80-110) mg/dL Lactate 1.2 (0.7-2.1) mmol/L Calcium (8.4-10.2) mg/dL Magnesium (1.6-2.3) mg/dL Total Creatine Kinase (55-170) U/L CK-MB (CK-2) (<2.37) ng/mL CK-MB (CK-2) Rel Index (1.5-5.0) % Troponin I (0.01-0.034) ng/mL Procalcitonin (<0.5) ng/mL TSH (0.47-4.68) uIU/mL Nasal Screen MRSA (PCR) Negative for mrsa (Negative) Influenza A & B (PCR) (Negative) 12/09/18 12/09/18 Range/Units 22:54 22:54 WBC (4.5-11.0) X10^3/uL RBC (4.5-5.9) X10^6/uL Hgb (13.5-17.5) g/dL Hct (41-53) % MCV (80-100) fL MCH (26-34) PG MCHC (30-36) % RDW (11.6-14.8) % Plt Count (150-400) X10^3/uL Neut % (Auto) (50-75) % Lymph % (Auto) (25-40) % [place] % (Auto) (3-14) % Eos % (Auto) (2-4) % Baso % (Auto) (0-2) % Neut # (Auto) (3285-3771) /uL Lymph # (Auto) (1660-4888) /uL [place] # (Auto) (0-900) /uL Eos # (Auto) (0-450) /uL Baso # (Auto) (0-100) /uL PT (10.1-12.7) SECONDS INR (0.9-1.3) APTT (26.4-36.2) SECONDS Sodium (137-145) mmol/L Potassium (3.4-5.1) mmol/L Chloride (98-107) mmol/L Carbon Dioxide (22-32) mmol/L BUN (9-20) mg/dL Creatinine (0.66-1.25) mg/dL Estimated GFR (>60) mL/min BUN/Creatinine Ratio (6-22) Glucose (80-110) mg/dL Lactate (0.7-2.1) mmol/L Calcium (8.4-10.2) mg/dL Magnesium (1.6-2.3) mg/dL Total Creatine Kinase (55-170) U/L CK-MB (CK-2) (<2.37) ng/mL CK-MB (CK-2) Rel Index (1.5-5.0) % Troponin I < 0.012 (0.01-0.034) ng/mL Procalcitonin < 0.05 (<0.5) ng/mL TSH (0.47-4.68) uIU/mL Nasal Screen MRSA (PCR) (Negative) Influenza A & B (PCR) (Negative) Discharge Plan Departure Patient Disposition: Admitted As Inpatient Clinical Impression: Atrial fibrillation with rapid ventricular response Discharge Date/Time: 12/09/18 21:28 Interventions: ED Discharge Assessment Last Done: 12/09/18 21:21 Admit Date/Time: 12/09/18 20:45 Admit Provider: Michael Ngo
[2018-12-09] MEDS: dilTIAZem 125 MG in DEXTROSE 5 % IN WATER 100 ML IV (19:22)
[2018-12-09 19:32] LABS: Thyroid Stimulating Hormone 3.06 uIU/mL (0.47-4.68)
[2018-12-09] MEDS: METOPROLOL 12.5 MG TABLET PO (21:00)
[2018-12-09] MEDS: PRAMIPEXOLE 0.125 MG TABLET PO (22:48)
[2018-12-09] MEDS: ASPIRIN 325 MG TABLET PO (22:49)
--- NOTE | 2018-12-09 22:51 | PC.NURSE ---
2100- Patient arrived from Emergency via stretcher. Diltiazem gtt infusing at 15mg/hr. Pt in afib/RVR. Patient is alert oriented and cooperative with care. Patient was assisted to the bed in room 106. Bed alarm engaged as patient has a history of short term memory loss. Lungs are Dim/Clear saturation is 97% on room air. Will monitor.
[2018-12-09 23:10] LABS: INR 1.5 (0.9-1.3); Prothrombin Time 16.9 SECONDS (10.1-12.7)
[2018-12-09 23:12] LABS: PTT Partial Thromboplastin Tim 37 SECONDS (26.4-36.2)
[2018-12-09 23:39] LABS: Troponin I < 0.012 ng/mL (0.01-0.034)
[2018-12-09 23:42] LABS: Procalcitonin < 0.05 ng/mL (<0.5)
[2018-12-09] MEDS: ENOXAPARIN 100 MG/ML SYRINGE 90 MG SUBCUT (23:48)
[2018-12-10] VITALS (14 sets, daily range): BP systolic 97–145; BP diastolic 43–91; PULSE 66–85; RESP 10–20; TEMP 36.1–37.1; O2SAT 96–98
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
[2018-12-10] MEDS: SODIUM CHLORIDE 0.9% 1,000 ML 150 ML IV ×2 (00:31→08:20)
[2018-12-10] MEDS: LORazepam 0.5 MG TABLET PO (01:27)
[2018-12-10] MEDS: BENZONATATE 100 MG CAPSULE 200 MG PO ×3 (01:35→16:11)
--- NOTE | 2018-12-10 04:14 | ED_ITS ---
HPI - Arrhythmia/Palpitations General Chief Complaint: Arrhythmia/Palpitations Stated Complaint: COUGH, ABNORMAL EKG Time Seen by Provider: 12/09/18 18:13 Source: patient Mode of arrival: ambulatory Limitations: no limitations History of Present Illness HPI narrative: 68-year-old male former smoker with history of coronary artery disease, AFib and the memory issues presents at the request of the walk-in clinic. He presented to the walk-in clinic after having a few days of cough and shortness of breath which made him think he had pneumonia. The last time he had pneumonia he became quite ill and in the and had a cardiac arrest related to sepsis which resulted in an anoxic encephalopathy and contributed to his ongoing memory problems. He has a history of atrial fibrillation but does not know if he has been taking his anticoagulation and states he thinks he may have been out for some time. He denies any chest pain or even shortness of breath but is convinced he has pneumonia. He denies any fever or chills. He has had no runny nose, sore throat but has had occasional cough. Severity: moderate Arrhythmia history: atrial fibrillation and on anti-coagulants Associated symptoms: shortness of breath Related Data Previous Rx's Medication Instructions Recorded chlorpromazine 25 mg tablet 25 mg PO BEDTIME #90 tab 10/26/18 metoprolol succinate ER 50 mg 150 mg PO DAILY #90 tab 10/26/18 tablet,extended release 24 hr pramipexole 0.125 mg tablet 0.125 mg PO BEDTIME #90 tab 12/06/18 Allergies Allergy/AdvReac Type Severity Reaction Status Date / Time No Known Drug Allergies Allergy Verified 12/09/18 17:55 Review of Systems Constitutional Denies chills, Denies fever(s), Denies lethargy and Denies weakness Eyes Denies change in vision, Denies eye discharge, Denies irritation and Denies loss of vision ENT Ears, Nose, Mouth, and Throat: Denies change in voice, Denies neck pain and Denies sore throat Cardiovascular Denies chest pain, Denies irregular heart rhythm, Denies lightheadedness, Denies palpitations, Reports dyspnea, Reports dyspnea on exertion and Denies orthopnea Respiratory Reports cough, Reports dyspnea, Reports dyspnea on exertion and Denies wheezing Gastrointestinal Gastrointestinal: Denies abdominal pain, Denies change in bowel habits, Denies diarrhea, Denies nausea and Denies vomiting Genitourinary Denies hematuria, Denies flank pain, Denies urinary incontinence and Denies urinary urgency Musculoskeletal Denies neck pain Integumentary/Breasts Denies pruritus, Denies erythema, Denies rash and Denies wounds Neurologic Denies confusion, Denies loss of vision and Denies weakness Psychiatric Denies anxiety, Denies confusion, Denies depression, Denies homicidal ideation and Denies suicidal ideation Endocrine Denies palpitations Hematologic/Lymphatic Denies easy bruising Allergic/Immunologic Denies wheezing [facility] Medical History Essential hypertension (Chronic) Anoxic brain injury (Chronic) Memory loss (Chronic) Bipolar disorder (Chronic) Atrial fibrillation (Chronic 2017) Bipolar disorder (Chronic 1989) Dementia (Chronic 2017) Depression (Chronic 1989) Hypertension (Chronic) Kidney disease (Chronic 11/2017) Kidney failure (Chronic 11/2017) Low testosterone (Chronic 1989) Pituitary adenoma (Chronic 1989) Thyroid nodule (Chronic 1989) Cardiac arrest (Resolved 11/2017) Measles (Resolved) Melanoma (Resolved ) Mumps (Resolved) Pneumonia (Resolved 10/2012) Family History Father Cancer Hypertension Mother Diabetes mellitus Grandfather Cancer Grandmother Cancer Grandfather Heart disease Grandmother Heart disease Social History household members: spouse Smoking Status: Never smoker alcohol intake: never Family History Father Cancer Hypertension Mother Diabetes mellitus Grandfather Cancer Grandmother Cancer Grandfather Heart disease Grandmother Heart disease Social History household members: spouse Smoking Status: Never smoker alcohol intake: never Exam Narrative Exam Narrative: GENERAL: 68-year-old male is pleasantly confused and no obvious distress but does complain of feeling a bit anxious HEAD: Atraumatic. Normocephalic. No temporal or scalp tenderness. EYES: Pupils equal round and reactive. Extraocular motions intact. No scleral icterus. No injection or drainage. ENT: Nose without bleeding, purulent drainage or septal hematoma. Throat without erythema, tonsillar hypertrophy or exudate. Uvula midline. Airway patent. NECK: Trachea midline. No JVD or lymphadenopathy. Supple, nontender, no meningeal signs. CARDIOVASCULAR: tachycardic and irregular without murmurs, gallops, or rubs. RESPIRATORY: Clear to auscultation. Breath sounds equal bilaterally. No wheezes , rales, or rhonchi. GASTROINTESTINAL: Abdomen soft, non-tender, nondistended. No hepato-splenomegaly , or palpable masses. No guarding. EXTREMITIES: No clubbing, cyanosis, or edema. No joint tenderness, effusion, or edema noted. BACK: Nontender without deformity or crepitance. No flank tenderness. NEURO: AOx3. SKIN: No rash or erythema. Initial Vital Signs Initial Vital Signs: Vital Signs Temperature 98.7 F 12/09/18 17:45 Pulse Rate 92 H 12/09/18 17:45 Respiratory Rate 20 12/09/18 17:45 Blood Pressure 143/75 H 12/09/18 17:45 Pulse Oximetry 99 12/09/18 17:45 Course Orders Ordered: ED Orders 12/09/18 19:19 Blood Culture Stat 12/09/18 21:15 MRSA PCR Urgent 12/09/18 22:54 Partial Thromboplastin Time Stat Procalcitonin Stat Prothrombin Time INR Stat Troponin I Stat 12/10/18 EKG-12 Lead Routine 12/10/18 05:00 Troponin I Stat Acetaminophen (Tylenol) 650 mg PO Q6HR PRN PRN Reason: As Needed for Fever/Mild Pain Benzonatate (Tessalon Perles) 200 mg PO TID PRN PRN Reason: Cough Last Admin: 12/10/18 01:35 Dose: 200 mg Chlorpromazine HCl (Thorazine) 25 mg PO BEDTIME [facility] Last Admin: 12/09/18 22:49 Dose: Enoxaparin Sodium (Lovenox) 90 mg 0.75 mg/kg (90 mg) SUBCUT BID [facility] Last Admin: 12/09/18 23:48 Dose: 90 mg Sodium Chloride (Normal Saline 0.9%) 1,000 mls @ 150 mls/hr IV CONT [facility] Last Admin: 12/10/18 00:31 Dose: 150 mls/hr Infusion: 12/10/18 00:30 Dose: 0 mls/hr Infusion: 12/09/18 21:20 Dose: 150 mls/hr Admin: 12/09/18 18:55 Dose: 150 mls/hr Diltiazem HCl 125 mg/ Dextrose 125 mls @ 5 mls/hr IV TITRATE JAVI; Protocol Last Titration: 12/10/18 03:09 Dose: 5 mg/hr, 5 mls/hr Titration: 12/09/18 21:20 Dose: 15 mg/hr, 15 mls/hr Titration: 12/09/18 20:17 Dose: 15 mg/hr, 15 mls/hr Titration: 12/09/18 19:40 Dose: 10 mg/hr, 10 mls/hr Admin: 12/09/18 19:22 Dose: 5 mg/hr, 5 mls/hr Influenza Virus Vaccine (Flu Vaccine) 0.5 ml IM .ONCE ONE Stop: 12/10/18 09:01 Metoprolol Succinate (Toprol Xl) 150 mg PO DAILY JAVI Morphine Sulfate (Morphine) 2 mg IV Q4HR PRN PRN Reason: Pain, Moderate (4-6) Morphine Sulfate (Morphine) 4 mg IV Q4HR PRN PRN Reason: Pain, Severe (7-10) Pantoprazole Sodium (Protonix) 40 mg PO 0700 AJVI Pramipexole Dihydrochloride (Mirapex) 0.125 mg PO BEDTIME JAVI Last Admin: 12/09/18 22:48 Dose: 0.125 mg Discontinued Medications Aspirin (Aspirin) 325 mg PO NOW ONE Stop: 12/09/18 21:33 Last Admin: 12/09/18 22:49 Dose: 325 mg Diltiazem HCl (Cardizem) 10 mg IV NOW ONE Stop: 12/09/18 18:38 Last Admin: 12/09/18 18:54 Dose: 10 mg Dextrose/Sodium Chloride (Dextrose 5%-0.9% Ns) 1,000 mls @ 125 mls/hr IV CONT JAVI Lorazepam (Ativan) 0.5 mg PO BEDTIME PRN PRN Reason: Sleep Lorazepam (Ativan) 0.5 mg PO BEDTIME ONE Stop: 12/10/18 01:12 Last Admin: 12/10/18 01:27 Dose: 0.5 mg Metoprolol Tartrate (Lopressor) 12.5 mg PO NOW ONE Stop: 12/09/18 20:41 Last Admin: 12/09/18 21:00 Dose: 12.5 mg Reevaluation(s) Reevaluation #1: At no point this patient have chest pain, profound shortness of breath or ischemic EKG changes. It is unclear when his symptoms started and very likely that his anticoagulation is not being taken as directed making him of large wrist to cardiovert. For that reason he is administered Cardizem as an IV push which results in a transient lower in his heart rate at which point a Cardizem drip was ordered. After discussion with hospitalist metoprolol had been ordered as well Vital Signs - 8 hr 12/09/18 21:00 12/09/18 21:21 12/09/18 22:00 Temperature 98.9 F 98.8 F Pulse Rate 103 H 115 H 66 Respiratory Rate 16 16 17 Blood Pressure 127/81 121/91 H 121/71 Pulse Oximetry 99 96 12/09/18 23:35 12/10/18 00:06 12/10/18 01:04 Temperature 97.8 F 97.8 F Pulse Rate 71 66 79 Respiratory Rate 31 H 17 13 Blood Pressure 112/85 142/89 H 132/80 Pulse Oximetry 99 97 97 12/10/18 02:14 12/10/18 03:00 12/10/18 04:04 Temperature 97.8 F Pulse Rate 75 77 68 Respiratory Rate 17 16 10 L Blood Pressure 135/79 99/61 117/91 H Pulse Oximetry 96 96 97 MDM - Arrhythmia/Palpitations Lab Data Result diagrams: 12/09/18 18:40 12/09/18 18:40 Lab Results 12/09/18 12/09/18 12/09/18 Range/Units 18:40 18:40 18:40 WBC 9.8 (4.5-11.0) X10^3/uL RBC 5.07 (4.5-5.9) X10^6/uL Hgb 16.4 (13.5-17.5) g/dL Hct 47.8 (41-53) % MCV 94.2 (80-100) fL MCH 32.3 (26-34) PG MCHC 34.3 (30-36) % RDW 14.8 (11.6-14.8) % Plt Count 173 (150-400) X10^3/uL Neut % (Auto) 70.1 (50-75) % Lymph % (Auto) 17.9 L (25-40) % Stanly % (Auto) 9.0 (3-14) % Eos % (Auto) 2.5 (2-4) % Baso % (Auto) 0.5 (0-2) % Neut # (Auto) 6900 (2225-8447) /uL Lymph # (Auto) 1800 (8614-6569) /uL Stanly # (Auto) 900 (0-900) /uL Eos # (Auto) 200 (0-450) /uL Baso # (Auto) 0 (0-100) /uL PT (10.1-12.7) SECONDS INR (0.9-1.3) APTT (26.4-36.2) SECONDS Sodium 141 (137-145) mmol/L Potassium 3.7 (3.4-5.1) mmol/L Chloride 107 (98-107) mmol/L Carbon Dioxide 22 (22-32) mmol/L BUN 22 H (9-20) mg/dL Creatinine 1.40 H (0.66-1.25) mg/dL Estimated GFR 50.5 L (>60) mL/min BUN/Creatinine Ratio 15.7 (6-22) Glucose 88 (80-110) mg/dL Lactate (0.7-2.1) mmol/L Calcium 9.5 (8.4-10.2) mg/dL Magnesium 2.0 (1.6-2.3) mg/dL Total Creatine Kinase 246 H (55-170) U/L CK-MB (CK-2) 5.70 H (<2.37) ng/mL CK-MB (CK-2) Rel Index 2.3 (1.5-5.0) % Troponin I < 0.012 (0.01-0.034) ng/mL Procalcitonin < 0.05 (<0.5) ng/mL TSH (0.47-4.68) uIU/mL Nasal Screen MRSA (PCR) (Negative) Influenza A & B (PCR) (Negative) 12/09/18 12/09/18 12/09/18 Range/Units 18:40 18:40 18:40 WBC (4.5-11.0) X10^3/uL RBC (4.5-5.9) X10^6/uL Hgb (13.5-17.5) g/dL Hct (41-53) % MCV (80-100) fL MCH (26-34) PG MCHC (30-36) % RDW (11.6-14.8) % Plt Count (150-400) X10^3/uL Neut % (Auto) (50-75) % Lymph % (Auto) (25-40) % Stanly % (Auto) (3-14) % Eos % (Auto) (2-4) % Baso % (Auto) (0-2) % Neut # (Auto) (3201-8652) /uL Lymph # (Auto) (8587-9995) /uL Stanly # (Auto) (0-900) /uL Eos # (Auto) (0-450) /uL Baso # (Auto) (0-100) /uL PT (10.1-12.7) SECONDS INR (0.9-1.3) APTT (26.4-36.2) SECONDS Sodium (137-145) mmol/L Potassium (3.4-5.1) mmol/L Chloride (98-107) mmol/L Carbon Dioxide (22-32) mmol/L BUN (9-20) mg/dL Creatinine (0.66-1.25) mg/dL Estimated GFR (>60) mL/min BUN/Creatinine Ratio (6-22) Glucose (80-110) mg/dL Lactate (0.7-2.1) mmol/L Calcium (8.4-10.2) mg/dL Magnesium (1.6-2.3) mg/dL Total Creatine Kinase (55-170) U/L CK-MB (CK-2) (<2.37) ng/mL CK-MB (CK-2) Rel Index (1.5-5.0) % Troponin I (0.01-0.034) ng/mL Procalcitonin Cancelled (<0.5) ng/mL TSH 3.06 (0.47-4.68) uIU/mL Nasal Screen MRSA (PCR) (Negative) Influenza A & B (PCR) Negative (Negative) 12/09/18 12/09/18 12/09/18 Range/Units 18:40 21:15 22:54 WBC (4.5-11.0) X10^3/uL RBC (4.5-5.9) X10^6/uL Hgb (13.5-17.5) g/dL Hct (41-53) % MCV (80-100) fL MCH (26-34) PG MCHC (30-36) % RDW (11.6-14.8) % Plt Count (150-400) X10^3/uL Neut % (Auto) (50-75) % Lymph % (Auto) (25-40) % Stanly % (Auto) (3-14) % Eos % (Auto) (2-4) % Baso % (Auto) (0-2) % Neut # (Auto) (6213-6967) /uL Lymph # (Auto) (7762-3046) /uL Stanly # (Auto) (0-900) /uL Eos # (Auto) (0-450) /uL Baso # (Auto) (0-100) /uL PT 16.9 H (10.1-12.7) SECONDS INR 1.5 H (0.9-1.3) APTT 37 H (26.4-36.2) SECONDS Sodium (137-145) mmol/L Potassium (3.4-5.1) mmol/L Chloride (98-107) mmol/L Carbon Dioxide (22-32) mmol/L BUN (9-20) mg/dL Creatinine (0.66-1.25) mg/dL Estimated GFR (>60) mL/min BUN/Creatinine Ratio (6-22) Glucose (80-110) mg/dL Lactate 1.2 (0.7-2.1) mmol/L Calcium (8.4-10.2) mg/dL Magnesium (1.6-2.3) mg/dL Total Creatine Kinase (55-170) U/L CK-MB (CK-2) (<2.37) ng/mL CK-MB (CK-2) Rel Index (1.5-5.0) % Troponin I (0.01-0.034) ng/mL Procalcitonin (<0.5) ng/mL TSH (0.47-4.68) uIU/mL Nasal Screen MRSA (PCR) Negative for mrsa (Negative) Influenza A & B (PCR) (Negative) 12/09/18 12/09/18 Range/Units 22:54 22:54 WBC (4.5-11.0) X10^3/uL RBC (4.5-5.9) X10^6/uL Hgb (13.5-17.5) g/dL Hct (41-53) % MCV (80-100) fL MCH (26-34) PG MCHC (30-36) % RDW (11.6-14.8) % Plt Count (150-400) X10^3/uL Neut % (Auto) (50-75) % Lymph % (Auto) (25-40) % Stanly % (Auto) (3-14) % Eos % (Auto) (2-4) % Baso % (Auto) (0-2) % Neut # (Auto) (4923-9924) /uL Lymph # (Auto) (2293-9647) /uL Stanly # (Auto) (0-900) /uL Eos # (Auto) (0-450) /uL Baso # (Auto) (0-100) /uL PT (10.1-12.7) SECONDS INR (0.9-1.3) APTT (26.4-36.2) SECONDS Sodium (137-145) mmol/L Potassium (3.4-5.1) mmol/L Chloride (98-107) mmol/L Carbon Dioxide (22-32) mmol/L BUN (9-20) mg/dL Creatinine (0.66-1.25) mg/dL Estimated GFR (>60) mL/min BUN/Creatinine Ratio (6-22) Glucose (80-110) mg/dL Lactate (0.7-2.1) mmol/L Calcium (8.4-10.2) mg/dL Magnesium (1.6-2.3) mg/dL Total Creatine Kinase (55-170) U/L CK-MB (CK-2) (<2.37) ng/mL CK-MB (CK-2) Rel Index (1.5-5.0) % Troponin I < 0.012 (0.01-0.034) ng/mL Procalcitonin < 0.05 (<0.5) ng/mL TSH (0.47-4.68) uIU/mL Nasal Screen MRSA (PCR) (Negative) Influenza A & B (PCR) (Negative) Discharge Plan Departure Patient Disposition: Admitted As Inpatient Clinical Impression: Atrial fibrillation with rapid ventricular response Discharge Date/Time: 12/09/18 21:28 Interventions: ED Discharge Assessment Last Done: 12/09/18 21:21 Admit Date/Time: 12/09/18 20:45 Admit Provider: Michael Ngo
[2018-12-10] MEDS: METOPROLOL ER 50 MG TABLET 150 MG PO (08:18)
[2018-12-10 08:19] LABS: Add Manual Diff / Slide Review NO; Basophils Absolute Auto 0 /uL (0-100); Basophils Percent Auto 0.5 % (0-2); Eosinophils Absolute Auto 300 /uL (0-450); Eosinophils Percent Auto 4.2 % (2-4); Hematocrit 44.5 % (41-53); Lymphocytes Absolute Auto 2000 /uL (1100-4500); Lymphocytes Percent Auto 27.8 % (25-40); Mean Corpuscular HGB Conc 33.7 % (30-36); Mean Corpuscular Hemoglobin 32.1 PG (26-34); Monocytes Absolute Auto 700 /uL (0-900); Monocytes Percent Auto 9.4 % (3-14); Neutrophils Absolute Auto 4100 /uL (1500-7000); Neutrophils Percent Auto 58.1 % (50-75); Platelet Count 166 X10^3/uL (150-400); Red Blood Cell Count 4.69 X10^6/uL (4.5-5.9); Red Cell Distribution Width 14.7 % (11.6-14.8); White Blood Cell Count 7.1 X10^3/uL (4.5-11.0)
[2018-12-10] MEDS: PANTOPRAZOLE 40 MG TABLET PO (08:19)
[2018-12-10] MEDS: ENOXAPARIN 100 MG/ML SYRINGE 90 MG SUBCUT ×2 (08:19→20:51)
[2018-12-10 08:37] LABS: BUN Creatinine Ratio 15.4 (6-22); Blood Urea Nitrogen 20 mg/dL (9-20); Calcium 8.7 mg/dL (8.4-10.2); Carbon Dioxide 23 mmol/L (22-32); Chloride 107 mmol/L (98-107); Estimated Glomerular Filt Rate 55.1 mL/min (>60); Glucose 84 mg/dL (80-110); HEMOLYSIS < 15 (0-50); Potassium 3.8 mmol/L (3.4-5.1); Sodium 140 mmol/L (137-145)
--- NOTE | 2018-12-10 08:37 | CM.DANOTE ---
DCP:Case received, EMR reviewed and met with patient. Introduced self and role. DCP template completeed with information currently available. Patient is a 68 year old male who admitted yesterday evening to the care of the hospitalist team. PCP: Has no primary provider. Payer: confirmed; Medicare/Medicaid. Patient came to hospital via family vehicle due to cough and shortness of breath. Patient has history of Pneumonia, and suffered from cardiac arrest last year, which entailed some short term memory loss. Violeta carries diagnosis of A-fib. Spoke to patient, stated that he lives with his , and is independent. He stated, he knows that sometimes he forgets things, and uses a notebook to write things down. Discussed having a primary provider. He stated, his last doctor moved away, and he does not currently have one. Asked him if he had security infrastructure engineer, and he stated, he was in a [facility] when he had heart problems, but no security infrastructure engineer. Discussed possibility of seeking a provider in the area. P: DCP to continue to assess. Should be able to go home when stable, will need provider information as to who is accepting patients. Beverly Pemberton, RN/Neurology Stroke Physician
[2018-12-10 08:49] LABS: Troponin I < 0.012 ng/mL (0.01-0.034)
[2018-12-10] MEDS: ACETAMINOPHEN 325 MG TABLET 650 MG PO (12:25)
--- NOTE | 2018-12-10 12:51 | PC.NURSE ---
Addendum entered by Francisco Tyler R.N. 12/10/18 14:23: Pt was able to nap post tylenol administration. Reported relief of symptoms upon awakening. Voided 775 ML clear, yellow urine per urinal. States he broke in to a sweat while sleeping but feels better now. Assessed temporal temp 97.7. Adjusted room temp. Call light in reach. Will monitor. Original Note: Dilt gtt weaned to off after AM metoprolol given. Pt remains Afib with rate controlled. Initially c/o midsternal CP 3/10 with associated pressure but then reports it's related to cough. Lungs are CTA. SPO2 WNL on RA. Dry cough without notable sputum production. Tessalon given with little relief. Pt c/o ear ache. Declines warm compress. APAP given. Will monitor for effect. Educated to pulmonary hygiene and importance of deep breathing and coughing to clear any secretions. Pt verbalizes understanding. He is AO x3 but forgetful with baseline short-term deficits secondary to hx of anoxic brain injury. Denies falls. Requests flu vaccine tomorrow. Bed alarm on and call light within easy reach.
--- NOTE | 2018-12-10 17:30 | P.PN_ITS ---
Subjective Date Patient Seen: 12/10/18 Interval history: He is seen today to follow-up the atrial fibrillation with rapid ventricular response, bipolar disorder, post anoxic encephalopathy/ dementia. He points out a rather large sebaceous cyst on his left low back. The echocardiogram was done this morning and is read as 50-60% ejection fraction , without significant valvular disease. His rapid ventricular response has stabilized. Exam Vital Signs (past 8 hours): - 12/10/18 10:00 12/10/18 11:56 12/10/18 16:00 Temperature 98.4 F 98.8 F 97.0 F L Pulse Rate 78 85 75 Respiratory Rate 16 14 14 Blood Pressure 108/43 L 117/67 123/74 Pulse Oximetry 98 96 97 Oxygen Delivery Method Room Air Oxygen Flow Rate 0 Narrative Exam Narrative: He is alert and oriented x3. 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 He has very little memory of specific doses, medicines, events. Heart is irregularly irregular without murmur. Lungs are clear to auscultation bilaterally. Extremities have no ankle edema. Objective Labs Result Diagrams: 12/10/18 07:47 12/10/18 07:47 Labs: Laboratory Results - last 24 hr 12/09/18 12/09/18 12/09/18 18:40 18:40 18:40 WBC 9.8 RBC 5.07 Hgb 16.4 Hct 47.8 MCV 94.2 MCH 32.3 MCHC 34.3 RDW 14.8 Plt Count 173 Neut % (Auto) 70.1 Lymph % (Auto) 17.9 L Mcdonald % (Auto) 9.0 Eos % (Auto) 2.5 Baso % (Auto) 0.5 Neut # (Auto) 6900 Lymph # (Auto) 1800 Mcdonald # (Auto) 900 Eos # (Auto) 200 Baso # (Auto) 0 PT INR APTT Sodium 141 Potassium 3.7 Chloride 107 Carbon Dioxide 22 BUN 22 H Creatinine 1.40 H Estimated GFR 50.5 L BUN/Creatinine Ratio 15.7 Glucose 88 Lactate Calcium 9.5 Magnesium 2.0 Total Creatine Kinase 246 H CK-MB (CK-2) 5.70 H CK-MB (CK-2) Rel Index 2.3 Troponin I < 0.012 Procalcitonin < 0.05 TSH Nasal Screen MRSA (PCR) Influenza A & B (PCR) 12/09/18 12/09/18 12/09/18 18:40 18:40 18:40 WBC RBC Hgb Hct MCV MCH MCHC RDW Plt Count Neut % (Auto) Lymph % (Auto) Mcdonald % (Auto) Eos % (Auto) Baso % (Auto) Neut # (Auto) Lymph # (Auto) Mcdonald # (Auto) Eos # (Auto) Baso # (Auto) PT INR APTT Sodium Potassium Chloride Carbon Dioxide BUN Creatinine Estimated GFR BUN/Creatinine Ratio Glucose Lactate Calcium Magnesium Total Creatine Kinase CK-MB (CK-2) CK-MB (CK-2) Rel Index Troponin I Procalcitonin Cancelled TSH 3.06 Nasal Screen MRSA (PCR) Influenza A & B (PCR) Negative 12/09/18 12/09/18 12/09/18 18:40 21:15 22:54 WBC RBC Hgb Hct MCV MCH MCHC RDW Plt Count Neut % (Auto) Lymph % (Auto) Mcdonald % (Auto) Eos % (Auto) Baso % (Auto) Neut # (Auto) Lymph # (Auto) Mcdonald # (Auto) Eos # (Auto) Baso # (Auto) PT 16.9 H INR 1.5 H APTT 37 H Sodium Potassium Chloride Carbon Dioxide BUN Creatinine Estimated GFR BUN/Creatinine Ratio Glucose Lactate 1.2 Calcium Magnesium Total Creatine Kinase CK-MB (CK-2) CK-MB (CK-2) Rel Index Troponin I Procalcitonin TSH Nasal Screen MRSA (PCR) Negative for mrsa Influenza A & B (PCR) 12/09/18 12/09/18 12/10/18 22:54 22:54 07:47 WBC 7.1 RBC 4.69 Hgb 15.0 Hct 44.5 MCV 95.0 MCH 32.1 MCHC 33.7 RDW 14.7 Plt Count 166 Neut % (Auto) 58.1 Lymph % (Auto) 27.8 Mcdonald % (Auto) 9.4 Eos % (Auto) 4.2 H Baso % (Auto) 0.5 Neut # (Auto) 4100 Lymph # (Auto) 2000 Mcdonald # (Auto) 700 Eos # (Auto) 300 Baso # (Auto) 0 PT INR APTT Sodium Potassium Chloride Carbon Dioxide BUN Creatinine Estimated GFR BUN/Creatinine Ratio Glucose Lactate Calcium Magnesium Total Creatine Kinase CK-MB (CK-2) CK-MB (CK-2) Rel Index Troponin I < 0.012 Procalcitonin < 0.05 TSH Nasal Screen MRSA (PCR) Influenza A & B (PCR) 12/10/18 07:47 WBC RBC Hgb Hct MCV MCH MCHC RDW Plt Count Neut % (Auto) Lymph % (Auto) Mcdonald % (Auto) Eos % (Auto) Baso % (Auto) Neut # (Auto) Lymph # (Auto) Mcdonald # (Auto) Eos # (Auto) Baso # (Auto) PT INR APTT Sodium 140 Potassium 3.8 Chloride 107 Carbon Dioxide 23 BUN 20 Creatinine 1.30 H Estimated GFR 55.1 L BUN/Creatinine Ratio 15.4 Glucose 84 Lactate Calcium 8.7 Magnesium Total Creatine Kinase CK-MB (CK-2) CK-MB (CK-2) Rel Index Troponin I < 0.012 Procalcitonin TSH Nasal Screen MRSA (PCR) Influenza A & B (PCR) Assessment & Plan Plan: Assessment/Plan Narrative: This is a 68-year-old male patient admitted to the ICU on a Cardizem drip last night for control of atrial fibrillation with RVR. 1. Atrial fibrillation with rapid ventricular response, present on admission, acute -patient had heart rate of 141 documented on EKG as atrial fibrillation upon arrival in the ER. Continue on diltiazem drip for rate control. -patient with previous episode of atrial fibrillation documented on EKG 2017. At that time the patient was being evaluated for atypical chest pain -patient home medication includes metoprolol 150 mg which he reports being compliant with, he is on no other anti rhythmic medication and is on no anticoagulation. -previous discussion held regarding warfarin which family declined based on risks and extensive monitoring -patient is given a full aspirin will be aspirin 81 mg daily -patient was started on Lovenox 90 mg twice daily -echocardiogram done for recurrent atrial fibrillation and high risk for stroke. CHADSVASC2 score is 4, HAS BLED score is 2 -12 lead EKG with lateral ST depression consistent with lateral ischemia. Troponins continue normal. -will obtain nuclear med stress test (unable to be done today due to scheduling conflicts) -patient will need cardiology referral, likely outpatient. 2. Bipolar, chronic, stable -patient is appropriately cooperative with no manifestations of depression or john. His description of his occupational achievements seems to be legitimate. -per report from patient's the patient required inpatient hospitalization to find the appropriate medication regimen to control the patient's symptoms -patient is currently on chlorpromazine 25 mg at bedtime and pramipexole 0.125 mg. 3. Dementia, chronic, stable -patient is status post anoxic brain injury following cardiac arrest related to pneumonia -patient with no motor or sensory deficits, information recall impairments noted -patient is fully able to complete all ADLs and IADLs independently. 4. Hypertension, chronic, stable -patient with mildly elevated pressure in the emergency department 140s -patient with home medication metoprolol 150 mg extended release daily which will be continued. -patient previously on amlodipine which was discontinued 7. Chronic kidney disease, stable -stage III based on the GFR of 50.5 -BUN of 22 and creatinine of 1.4 -will obtain urinalysis to evaluate for protein urea
[2018-12-10 20:08] LABS: Adenovirus Not Detected (Not Detect); Coronavirus 229E Not Detected (Not Detect); Coronavirus HKU1 Not Detected (Not Detect); Coronavirus NL 63 Not Detected (Not Detect); Coronavirus OC43 Not Detected (Not Detect); Human Metapneumovirus Not Detected (Not Detect)
[2018-12-10 20:09] LABS: Bordetella pertussis Not Detected (Not Detect); Chlamydophila pneumoniae Not Detected (Not Detect); Human Rhinovirus/Enterovirus Detected (Not Detect); Influenza A Not Detected (Not Detect); Influenza B Not Detected (Not Detect); Mycoplasma pneumoniae Not Detected (Not Detect); Parainfluenza Virus 1 Not Detected (Not Detect); Parainfluenza Virus 2 Not Detected (Not Detect); Parainfluenza Virus 3 Not Detected (Not Detect); Parainfluenza Virus 4 Not Detected (Not Detect); Respiratory Syncytial Virus Not Detected (Not Detect)
[2018-12-10] MEDS: PRAMIPEXOLE 0.125 MG TABLET PO (20:51)
[2018-12-10] MEDS: chlorproMAZINE 25 MG TABLET PO (20:51)
[2018-12-11 00:35] VITALS: BP 111/77; PULSE 69; RESP 17; TEMP 35.9
--- NOTE | 2018-12-11 00:55 | PC.NURSE ---
Cosmetic Counselor Note: 0030: Pt awake, vital signs stable. IV in place in rt hand. Pt remains in droplet precautions for Rhinovirus. Pt states he has a sore throat and ear ache. MYRNA Sheriff notified.
[2018-12-11] MEDS: BENZOCAINE/MENTHOL 1 LOZ PKT 1 EACH PO (02:03)
--- NOTE | 2018-12-11 03:51 | PM.EVENT ---
Date Patient Seen: 12/11/18 Time Patient Seen: 02:20 This is a 68-year-old male patient who has been admitted to the ICU for atrial fibrillation with RVR and is seen tonight for acute right ear pain. The patient has also been documented to have chronic cough with an unremarkable chest x-ray for which he is receiving benzonatate. Respiratory panel has been completed which identifies rhino virus and complains of ?excruciating? right ear pain that is keeping him awake at night. He has had associated symptoms of ear fullness, rhinorrhea and sore throat. He denies complaints of left ear pain. He denies headache or dizziness, sinus pain, fevers or chills. He has no mastoid pain, pain on manipulation of the tragus or the auricle, the external auditory canal the right ear is clear without inflammation with a sclerotic inflamed tympanic membrane. The patient is prescribed prednisone 20 mg x1 and Ringling 5/325 q.4 hours as needed for pain. He is also prescribed Ciprodex to begin in the morning.
[2018-12-11] MEDS: predniSONE 20 MG TABLET PO (04:09)
[2018-12-11 05:00] VITALS: BP 132/87; PULSE 86; RESP 14; TEMP 37; O2SAT 95
[2018-12-11 05:38] LABS: Add Manual Diff / Slide Review NO; Basophils Absolute Auto 0 /uL (0-100); Basophils Percent Auto 0.5 % (0-2); Eosinophils Absolute Auto 400 /uL (0-450); Eosinophils Percent Auto 5.3 % (2-4); Hematocrit 44.3 % (41-53); Hemoglobin 15.3 g/dL (13.5-17.5); Lymphocytes Absolute Auto 1700 /uL (1100-4500); Lymphocytes Percent Auto 22.2 % (25-40); Mean Corpuscular HGB Conc 34.5 % (30-36); Mean Corpuscular Hemoglobin 32.6 PG (26-34); Mean Corpuscular Volume 94.4 fL (80-100); Monocytes Absolute Auto 700 /uL (0-900); Monocytes Percent Auto 9.1 % (3-14); Neutrophils Absolute Auto 4800 /uL (1500-7000); Neutrophils Percent Auto 62.9 % (50-75); Platelet Count 168 X10^3/uL (150-400); Red Blood Cell Count 4.69 X10^6/uL (4.5-5.9); Red Cell Distribution Width 14.7 % (11.6-14.8); White Blood Cell Count 7.6 X10^3/uL (4.5-11.0)
[2018-12-11 05:44] LABS: BUN Creatinine Ratio 14.2 (6-22); Blood Urea Nitrogen 17 mg/dL (9-20); Calcium 8.9 mg/dL (8.4-10.2); Carbon Dioxide 23 mmol/L (22-32); Chloride 106 mmol/L (98-107); Estimated Glomerular Filt Rate > 60.0 mL/min (>60); Glucose 107 mg/dL (80-110); HEMOLYSIS < 15 (0-50); Potassium 3.6 mmol/L (3.4-5.1); Sodium 140 mmol/L (137-145)
[2018-12-11] MEDS: PANTOPRAZOLE 40 MG TABLET PO (06:52)
[2018-12-11 07:38] VITALS: BP 138/85; PULSE 90; RESP 16; TEMP 36.4; O2SAT 95
[2018-12-11] MEDS: CIPROFLOXACIN/DEXAMETH OTIC SUSP 4 DROPS EAR-RIGHT (08:39)
[2018-12-11] MEDS: ACETAMINOPHEN 325 MG TABLET 650 MG PO (08:40)
[2018-12-11] MEDS: BENZONATATE 100 MG CAPSULE 200 MG PO (08:40)
[2018-12-11] MEDS: ENOXAPARIN 100 MG/ML SYRINGE 90 MG SUBCUT (08:43)
[2018-12-11] MEDS: METOPROLOL ER 50 MG TABLET 150 MG PO (08:45)
[2018-12-11 12:00] VITALS: BP 113/82; PULSE 98; RESP 18; TEMP 37.3; O2SAT 96
--- NOTE | 2018-12-11 12:33 | PM.PN.1 ---
Exam Vital Signs (past 8 hours): - 12/11/18 05:00 12/11/18 07:38 12/11/18 12:00 Temperature 98.6 F 97.5 F L 99.2 F Pulse Rate 86 90 98 H Respiratory Rate 14 16 18 Blood Pressure 132/87 138/85 113/82 Pulse Oximetry 95 95 96 Oxygen Delivery Method Room Air Oxygen Flow Rate 0 Objective Labs Result Diagrams: 12/11/18 04:50 12/11/18 04:50 Labs: Laboratory Results - last 24 hr 12/10/18 12/11/18 12/11/18 16:50 04:50 04:50 WBC 7.6 RBC 4.69 Hgb 15.3 Hct 44.3 MCV 94.4 MCH 32.6 MCHC 34.5 RDW 14.7 Plt Count 168 Neut % (Auto) 62.9 Lymph % (Auto) 22.2 L [place] % (Auto) 9.1 Eos % (Auto) 5.3 H Baso % (Auto) 0.5 Neut # (Auto) 4800 Lymph # (Auto) 1700 [place] # (Auto) 700 Eos # (Auto) 400 Baso # (Auto) 0 Sodium 140 Potassium 3.6 Chloride 106 Carbon Dioxide 23 BUN 17 Creatinine 1.20 Estimated GFR > 60.0 BUN/Creatinine Ratio 14.2 Glucose 107 Calcium 8.9 Chlamy pneumoniae PCR Not detected Adenovirus (PCR) Not detected B.parapertussis DNA PCR Not detected Coronavirus OC43 (PCR) Not detected Coronavirus HKU1 (PCR) Not detected Coronavirus 229E (PCR) Not detected Coronavirus NL63 (PCR) Not detected Human Metapneumovir PCR Not detected Influenza Type A (PCR) Not detected Influenza Type B (PCR) Not detected M. pneumoniae (PCR) Not detected Parainfluenza 1 (PCR) Not detected Parainfluenza 2 (PCR) Not detected Parainfluenza 3 (PCR) Not detected Parainfluenza 4 (PCR) Not detected RSV (PCR) Not detected Entero/Rhino (PCR) Detected H
--- NOTE | 2018-12-11 13:05 | PC.NURSE ---
Pt up to shower, denies shortness of % on RA. Tele continues with afib/flutter CVR. O2 sats = 96% on RA. MD would like to speak with spouse before possibly discharging him this afternoon.
[2018-12-11 16:26] VITALS: PULSE 97; RESP 18; TEMP 36.7; O2SAT 96
--- NOTE | 2018-12-11 17:41 | PM.DS.1 ---
History of Present Illness Date Patient Seen: 12/11/18 Chief complaint: COUGH, ABNORMAL EKG Narrative: This is a 68-year-old male patient who has a prior history of severe pneumonia progressing to cardiac arrest with subsequent anoxic encephalopathy, mildly impaired memory, atrial fibrillation and bipolar disorder who presents today for evaluation of a cough and shortness of breath. The patient reports he became ill 1-2 weeks ago with a cough and upper respiratory symptoms with associated fever and chills. Patient complains of exertional dyspnea for the last 2-3 days and also reports intermittent palpitations. Reports cough has been dry and nonproductive and has chest pain with coughing and mild headache. The patient previously was evaluated for an atypical chest pain in the ER on 07/04/2018 with the patient was also found to be in atrial fibrillation. Per discussion the patient in his they had previously discussed the patient being on warfarin however the family was scared by the medication and declined. At this time the patient is on no anticoagulation. Denies visual changes or dizziness, has no difficulty chewing or swallowing, denies weakness in the extremities or ataxia. He reports alteration in sensation. On arrival in the ER the patient had a heart rate in the 140s confirmed atrial fibrillation. The patient received Cardizem with minimal reduction in heart rate was started on a Cardizem drip that has been since titrated up to 15 milligrams/hour. Patient is on metoprolol 150 mg daily and reports that he has been compliant with his medication. Chest x-ray was taken which shows lungs to be clear no acute cardiopulmonary pathology and no evidence of cardiomyopathy. His CBC is within normal range without a left shift, his lactate is 1.2, his magnesium is 2.0. Does have a troponin that is less than 0.012 however has an elevated CK-MB of 5.7. His electrolytes are unremarkable however he does have a BUN of 22 and creatinine of 1.4. On encounter the patient complains of chest pressure across the precordium which she describes as similar to what he was experiencing in June last year. Denies radiation has no shortness of breath the rest he indicates that the pressure is somewhat relieved with deep inspiration. At present he denies shortness of breath and has no nausea or vomiting and reports no diarrhea or constipation. The patient endorses that following his cardiac event and subsequent encephalopathy he had an inpatient psychiatric hospitalization to adjust his bipolar medications. He currently takes chlorpromazine 25 mg and pramipexole 0.125 mg daily. Discharge Providers Date of admission: 12/09/18 20:45 Discharge provider: Avery Epps MD Discharge Date: 12/11/18 Summary Hospital Course: 1. Atrial fibrillation with rapid ventricular response, present on admission, acute -patient had heart rate of 141 documented on EKG as atrial fibrillation upon arrival in the ER. Treated succesfully and weaned off Diltiazem drip yesterday. -patient with previous episode of atrial fibrillation documented on EKG 07/04/2018. At that time the patient was being evaluated for atypical chest pain -patient home medication includes metoprolol 150 mg which he reports being compliant with, he is on no other anti rhythmic medication and is on no anticoagulation. He has remained on this with a HR less than 100 most of the time. -previous discussion held regarding warfarin which family declined based on risks and extensive monitoring. He is willing to take Eliquis instead. -echocardiogram done for recurrent atrial fibrillation and high risk for stroke. CHADSVASC2 score is 4, HAS BLED score is 2 -12 lead EKG with lateral ST depression consistent with lateral ischemia. Troponins were normal. -will obtain nuclear med stress test as an outpatient. Explained to him and his that he will need a new PCP JOSE ALFREDO and then this can be arranged. -patient will need cardiology referral, likely outpatient. 2. Bipolar, chronic, stable -patient is appropriately cooperative with no manifestations of depression or john. His description of his occupational achievements seems to be legitimate. -per report from patient's the patient required inpatient hospitalization to find the appropriate medication regimen to control the patient's symptoms -patient is currently on chlorpromazine 25 mg at bedtime and pramipexole 0.125 mg. 3. Dementia, chronic, stable -patient is status post anoxic brain injury following cardiac arrest related to pneumonia -patient with no motor or sensory deficits, information recall impairments noted -patient is fully able to complete all ADLs and IADLs independently. 4. Hypertension, chronic, stable -patient with mildly elevated pressure in the emergency department 140s -patient with home medication metoprolol 150 mg extended release daily which will be continued. -patient previously on amlodipine which was discontinued 7. Chronic kidney disease, stable -stage III based on the GFR of 50.5 -BUN of 22 and creatinine of 1.4 Time Spent with Patient Greater than 30 minutes Exam Vital Signs (past 8 hours): - 12/11/18 12:00 12/11/18 16:26 Temperature 99.2 F 98.1 F Pulse Rate 98 H 97 H Respiratory Rate 18 18 Blood Pressure 113/82 Pulse Oximetry 96 96 Oxygen Delivery Method Room Air Oxygen Flow Rate 0 Narrative Exam Narrative: He is alert and oriented x3 but continues to have very poor short-term memory. His , has been at home taking care of her grandchildren, and eventually was able to come in late in the afternoon. I looked inside the right ear and it looks somewhat odd but not acutely inflamed anymore. He feels weak and is still coughing. Heart is irregularly irregular. There is no murmur. Lungs are clear to auscultation bilaterally. Extremities have no ankle edema. His respiratory panel was positive for rhino virus. Objective Labs Result Diagrams: 12/11/18 04:50 12/11/18 04:50 Labs: Laboratory Results - last 24 hr 12/10/18 12/11/18 12/11/18 16:50 04:50 04:50 WBC 7.6 RBC 4.69 Hgb 15.3 Hct 44.3 MCV 94.4 MCH 32.6 MCHC 34.5 RDW 14.7 Plt Count 168 Neut % (Auto) 62.9 Lymph % (Auto) 22.2 L [place] % (Auto) 9.1 Eos % (Auto) 5.3 H Baso % (Auto) 0.5 Neut # (Auto) 4800 Lymph # (Auto) 1700 [place] # (Auto) 700 Eos # (Auto) 400 Baso # (Auto) 0 Sodium 140 Potassium 3.6 Chloride 106 Carbon Dioxide 23 BUN 17 Creatinine 1.20 Estimated GFR > 60.0 BUN/Creatinine Ratio 14.2 Glucose 107 Calcium 8.9 Chlamy pneumoniae PCR Not detected Adenovirus (PCR) Not detected B.parapertussis DNA PCR Not detected Coronavirus OC43 (PCR) Not detected Coronavirus HKU1 (PCR) Not detected Coronavirus 229E (PCR) Not detected Coronavirus NL63 (PCR) Not detected Human Metapneumovir PCR Not detected Influenza Type A (PCR) Not detected Influenza Type B (PCR) Not detected M. pneumoniae (PCR) Not detected Parainfluenza 1 (PCR) Not detected Parainfluenza 2 (PCR) Not detected Parainfluenza 3 (PCR) Not detected Parainfluenza 4 (PCR) Not detected RSV (PCR) Not detected Entero/Rhino (PCR) Detected H Discharge Plan Discharge Plan Patient Disposition: Home Discharge comment: Please find a new PCP as soon as possible to arrange for your cardiac stress test and scan. Local clinics: [facility]: ; [facility] ; [facility] Discharge Med Rec/Prescriptions Prescriptions: New benzonatate 100 mg Capsule 200 mg PO TID PRN (Reason: Cough) Qty: 20 RF: 0 apixaban [Eliquis] 5 mg tablet 5 mg PO BID Qty: 60 RF: 0 Continue chlorpromazine 25 mg tablet 25 mg PO BEDTIME Qty: 90 RF: 0 metoprolol succinate 50 mg tablet extended release 24 hr 150 mg PO DAILY Qty: 90 RF: 5 pramipexole 0.125 mg tablet 0.125 mg PO BEDTIME Qty: 90 RF: 1 Discontinued warfarin 5 mg 5 mg PO DAILY RF: 0 Provider Discharge Instructions Diet: Regular Visit Report/Discharge Packet Instructions: Benzonatate, Apixaban Visit Report Forms: Stroke Signs & Symptoms Discharge Data Attending Provider: Michael Ngo Admit Date/Time: 12/09/18 20:45 Discharges patient from system. Discharge Date/Time: 12/11/18 18:38
== END 2018-12-11 18:38 | disposition home or self-care (01) | DRG 309 ==
LOC: ED 18:13 → ICU 20:49
PROVIDERS: Admitting Provider Nurse Practitioner Adult Health; Emergency Provider Emergency Medicine; Visit Provider Nurse Practitioner Adult Health
DX: I48.91 Unspecified atrial fibrillation (principal); G93.1 Anoxic brain damage, not elsewhere classified; F31.9 Bipolar disorder, unspecified; I12.9 Hypertensive chronic kidney disease with stage 1 through stage 4 chronic kidney disease, or unspecified chronic kidney disease; N18.3 Chronic kidney disease, stage 3 (moderate); H92.01 Otalgia, right ear; I25.10 Atherosclerotic heart disease of native coronary artery without angina pectoris
CPT/HCPCS: 36415; 36591; 71046; 80048; 82550; 82553; 83605; 83735; 84145; 84443; 84484; 85025; 85610; 85730; 87040; 87400; 87633; 87797; 93005; 93041; 93306; 96365; 96366; 96375; 99284; 99285; J1650

== ENCOUNTER → 2021-12-09 10:27 | Outpatient (CLI) | payer MEDICARE, SELFPAY ==
[2018-12-09 21:42] VITALS: BMI 34.2
[2021-12-09 11:42] LABS: Add Manual Diff / Slide Review NO; Basophils Absolute Auto 0 /uL (0-100); Basophils Percent Auto 0.5 % (0-2); Eosinophils Absolute Auto 300 /uL (0-450); Eosinophils Percent Auto 5.2 % (2-4); Hematocrit 52.4 % (41-53); Hemoglobin 17.7 g/dL (13.5-17.5); Lymphocytes Absolute Auto 1400 /uL (1100-4500); Lymphocytes Percent Auto 27.8 % (25-40); Mean Corpuscular HGB Conc 33.8 % (30-36); Mean Corpuscular Hemoglobin 32.4 PG (26-34); Monocytes Absolute Auto 500 /uL (0-900); Monocytes Percent Auto 8.9 % (3-14); Neutrophils Absolute Auto 2900 /uL (1500-7000); Neutrophils Percent Auto 57.6 % (50-75); Platelet Count 153 X10^3/uL (150-400); Red Blood Cell Count 5.46 X10^6/uL (4.5-5.9); Red Cell Distribution Width 14.8 % (11.6-14.8); White Blood Cell Count 5.1 X10^3/uL (4.5-11.0)
[2021-12-09 12:06] LABS: Alanine Aminotransferase 47 IU/L (<50); Albumin 4.4 g/dL (3.5-5.0); Albumin Globulin Ratio 1.7 (1.0-2.8); Alkaline Phosphatase 73 U/L (38-126); Aspartate Aminotransferase 30 IU/L (17-59); BUN Creatinine Ratio 15.8 (6-22); Bilirubin Total 0.9 mg/dL (0.2-1.3); Blood Urea Nitrogen 22 mg/dL (9-20); Calcium 9.6 mg/dL (8.4-10.2); Carbon Dioxide 28 mmol/L (22-32); Chloride 105 mmol/L (98-107); Cholesterol 157 mg/dL (140-199); Estimated Glomerular Filt Rate 50.5 mL/min (>60); Globulin 2.6 g/dL (1.7-4.1); Glucose 112 mg/dL (80-110); HDL Cholesterol 31 mg/dL (40-60); HEMOLYSIS < 15 (0-50); LDL Cholesterol Calculated 85 mg/dL (<100); Potassium 4.1 mmol/L (3.4-5.1); Sodium 139 mmol/L (137-145); Triglycerides 204 mg/dL (35-150)
[2021-12-09 12:22] LABS: Free T4, Direct Thyroxine 1.06 ng/dL (0.78-2.19)
[2021-12-09 12:36] LABS: Thyroid Stimulating Hormone 2.91 uIU/mL (0.47-4.68)
[2021-12-09 12:37] LABS: Prostate Specific Antigen Scrn 3.51 ng/mL (0.1-4.0)
[2021-12-10 04:46] LABS: Homocysteine 18.6 umol/L (0.0-17.2)
[2021-12-10 15:46] LABS: Lead, Blood 2 ug/dL (0-4); Mercury, Blood 1.9 ug/L (0.0-14.9)
[2021-12-12 13:17] LABS: Percent Free Testosterone 2.31 % (1.50-4.20); Testosterone Free 8.87 ng/dL (5.00-21.00); Testosterone Total 383.8 ng/dL (264.0-916.0)
== END ==
PROVIDERS: PCP Internal Medicine; Referring Provider Internal Medicine; Visit Provider Internal Medicine
DX: I10 Essential (primary) hypertension (principal); R41.3 Other amnesia; I48.91 Unspecified atrial fibrillation; R79.89 Other specified abnormal findings of blood chemistry; Z79.01 Long term (current) use of anticoagulants; Z12.5 Encounter for screening for malignant neoplasm of prostate
CPT/HCPCS: 36415; 80053; 80061; 82175; 83090; 83655; 83825; 84402; 84403; 84439; 84443; 85025; G0103